=== PATIENT | male | born 2000 | race Caucasian/White ===

== ENCOUNTER 2024-05-20 23:32 | Emergency (ER) | payer MEDICAID ==
[~2024-05-20] VITALS: Ht 188 cm; Wt 93.0 kg
[2024-05-21 00:08] VITALS: BP 142/102; PULSE 85; RESP 18; TEMP 97.8; O2SAT 99
[2024-05-21] MEDS: KETOROLAC 30 MG/ML VIAL IM ONE (00:47)
[2024-05-21] MEDS: BACITRACIN OINT 500 UNITS/GM PKT TP ONE (00:48)
[2024-05-21] MEDS ORDERED: LID5T TP (01:14)
[2024-05-21] MEDS ORDERED: IBUP-2213 PO (01:14)
[2024-05-21] MEDS ORDERED: BACI-418 TP (01:14)
[2024-05-21] MEDS: LIDOCAINE 5% 1 EA PATCH TP ONE (01:18)
[2024-05-21 01:23] VITALS: BP 142/102; PULSE 85; RESP 18; TEMP 97.8; O2SAT 99
== END 2024-05-21 01:23 | disposition home or self-care (01) ==
LOC: MED 23:32
DX: S00.83XA Contusion of other part of head, initial encounter (principal); S30.811A Abrasion of abdominal wall, initial encounter; S50.312A Abrasion of left elbow, initial encounter; S80.212A Abrasion, left knee, initial encounter; M54.50 Low back pain, unspecified; Z88.8 Allergy status to other drugs, medicaments and biological substances; V29.91XA Electric (assisted) bicycle rider (driver) (passenger) injured in unspecified traffic accident, initial encounter; Y93.55 Activity, bike riding; Y92.410 Unspecified street and highway as the place of occurrence of the external cause; Y99.8 Other external cause status
CPT/HCPCS: 72110; 96372; 99283; J1885